=== PATIENT | male | born 1965 | race Caucasian/White ===

== ENCOUNTER 2018-12-21 06:38 | Day surgery (SDC) | payer OTHER ==
[2018-12-21] MEDS: SOD CHLORIDE 0.9% 1,000 ML IV (08:23)
[2018-12-21] MEDS ORDERED: CEFAZOLIN 2 GM/50 ML (PMX) 50 ML IVPB (10:00)
[2018-12-21] MEDS ORDERED: POLYMYXIN/BACITRACIN 1L IRRIG (10:36)
[2018-12-21] MEDS ORDERED: BUPIVACAINE 0.25% (MPF) 30 ML INJ (10:36)
[2018-12-21] MEDS ORDERED: MIDAZOLAM 1 MG/ML 2 ML INJ (10:52)
[2018-12-21] MEDS ORDERED: FENTAnyl 50 MCG/ML VIAL (10:52)
[2018-12-21] MEDS ORDERED: ROPIVACAINE 0.5 % 30 ML VIAL (10:55)
[2018-12-21] MEDS ORDERED: PROCHLORPERAZINE 10 MG INJ IV (11:00)
[2018-12-21] MEDS ORDERED: MEPERIDINE 25 MG INJ IV (11:00)
[2018-12-21] MEDS ORDERED: DIPHENHYDRAMINE 50 MG INJ IV (11:00)
[2018-12-21] MEDS ORDERED: OXYCODONE/ACETAMINOPHEN (5/325) TAB PO (11:00)
[2018-12-21] MEDS ORDERED: HYDROmorphONE 1 MG/5 ML IV SYRINGE IV ×3 (11:00)
[2018-12-21] MEDS ORDERED: FENTAnyl 50 MCG/ML VIAL IV (11:00)
[2018-12-21] MEDS ORDERED: LIDOCAINE 2% (SDV) 5 ML INJ (11:16)
[2018-12-21] MEDS ORDERED: ROCURONIUM 50 MG INJ (11:16)
[2018-12-21] MEDS ORDERED: PROPOFOL 20 ML (11:16)
[2018-12-21] MEDS ORDERED: CEFAZOLIN 1 GM INJ (11:16)
[2018-12-21] MEDS ORDERED: SUCCINYLCHOLINE CHLORIDE 100 MG/5 ML SYG IV (11:16)
[2018-12-21] MEDS ORDERED: FAMOTIDINE 20 MG INJ (11:17)
[2018-12-21] MEDS ORDERED: DEXAMETHASONE 4 MG/ML 5 ML INJ (11:17)
[2018-12-21] MEDS ORDERED: ONDANSETRON 4 MG INJ (11:17)
[2018-12-21] MEDS ORDERED: SUGAMMADEX SODIUM 200 MG/2 ML VIAL IV ×2 (11:44→11:46)
[2018-12-21] MEDS ORDERED: PHENYLephrine (100 MCG/ML) 10ML SYG (11:44)
[2018-12-21] MEDS ORDERED: EPHEDrine 25 MG/5 ML SYG (11:47)
[2018-12-21] MEDS: ONDANSETRON 4 MG INJ IV (12:25)
[2018-12-21] MEDS: HYDROCODONE/APAP (5/325) TAB PO (12:29)
== END 2018-12-21 13:23 | disposition home or self-care (01) ==
LOC: SDS 06:38
DX: K40.30 Unilateral inguinal hernia, with obstruction, without gangrene, not specified as recurrent (principal); E78.00 Pure hypercholesterolemia, unspecified; K44.0 Diaphragmatic hernia with obstruction, without gangrene
CPT/HCPCS: 49505